=== PATIENT | female | born 1955 | race Native Hawaiian/Other Pacific Islander ===

== ENCOUNTER 2017-10-12 17:37 | Emergency (ER) | payer OTHER ==
[~2017-10-12] VITALS: Ht 172.7 cm; Wt 111.0 kg
[~2017-10-12 17:37] MED LIST: CLOP75 PO; INSLAN SQ; LOSA50TA37 PO; METF500T7 PO; METO-558 PO; NITR.4 SL
[2017-10-12 18:13] LABS: GLUCOSE,POINT OF CARE 138 MG/DL (70-110)
[2017-10-12] MEDS ORDERED: SODIUM CHLORIDE 0.9% 2,000 ML IV ONE (19:00)
[2017-10-12] MEDS ORDERED: ACETAMINOPHEN 500 MG TABLET PO ONE (19:00)
[2017-10-12] MEDS ORDERED: ONDANSETRON HCL 4 MG/2 ML VIAL IVP ONE (19:00)
[2017-10-12 19:05] LABS: BASOPHILS % (AUTO) 0.5 % (0.0-2.0); EOSINOPHILS % (AUTO) 1.4 % (1.0-6.0); HEMATOCRIT 32.5 % (36-46); HEMOGLOBIN 11.2 g/dL (12.0-16.0); LYMPHOCYTES # (AUTO) 2.2 K/uL (1.0-4.8); LYMPHOCYTES % (AUTO) 16.2 % (22.0-44.0); MEAN CORPUSCULAR HEMOGLOBIN 30.3 pg (26.0-34.0); MEAN CORPUSCULAR HGB CONC 34.3 G/dL (31.0-37.0); MEAN CORPUSCULAR VOLUME 88 fL (80-100); MONOCYTES # (AUTO) 0.9 K/uL (0.1-1.0); MONOCYTES % (AUTO) 6.9 % (2.0-9.0); NEUTROPHILS # (AUTO) 10.1 K/uL (1.8-7.7); PLATELET COUNT (AUTO) 256 K/uL (150-450); RED BLOOD CELL COUNT(AUTO) 3.68 MIL/uL (4.00-5.20); RED CELL DISTRIBUTION WIDTH 13.2 % (11.5-14.5)
[2017-10-12 19:14] LABS: CALCIUM, TOTAL 9.1 mg/dL (8.8-10.5); CREATININE 1.05 mg/dL (0.60-1.30); POTASSIUM 3.6 mmol/L (3.5-5.1)
[2017-10-12 19:19] LABS: ALBUMIN 3.1 g/dL (3.4-5.0); BILIRUBIN,TOTAL 0.6 mg/dL (0.1-1.0); TOTAL PROTEIN, SERUM 7.5 g/dL (6.4-8.2)
[2017-10-12 19:24] LABS: LACTIC ACID 0.9 mmol/L (0.4-2.0)
[2017-10-12 20:35] LABS: APPEARANCE,URINE CLEAR (CLEAR); BILIRUBIN,URINE NEGATIVE (NEGATIVE); GLUCOSE, URINE (UA) NEGATIVE (NEGATIVE); KETONES,URINE NEGATIVE (NEGATIVE); LEUKOCYTE ESTERASE ,URINE NEGATIVE (NEGATIVE); NITRATE,URINE NEGATIVE (NEGATIVE); OCCULT BLOOD,URINE NEGATIVE (NEGATIVE); PROTEIN,URINE NEGATIVE (NEGATIVE); UROBILINOGEN,URINE 0.2 mg/dL (<=1.0)
[2017-10-12 20:44] LABS: BACTERIA,URINE None Seen /HPF (None Seen); RBC,URINE None Seen /HPF (0-2); SQUAMOUS EPITHELIAL CELL,UR Rare /LPF (None Seen); WBC,URINE 0-2 /HPF (0-5)
[2017-10-12 22:10] VITALS: BP 127/68
== END 2017-10-12 22:00 | disposition home or self-care (01) ==
LOC: EMS 17:41
DX: J20.9 Acute bronchitis, unspecified (principal); R50.9 Fever, unspecified; E11.9 Type 2 diabetes mellitus without complications; R53.1 Weakness; E78.00 Pure hypercholesterolemia, unspecified; F17.210 Nicotine dependence, cigarettes, uncomplicated; I10 Essential (primary) hypertension; Z79.4 Long term (current) use of insulin; Z88.5 Allergy status to narcotic agent; Z88.6 Allergy status to analgesic agent; Z79.899 Other long term (current) drug therapy
CPT/HCPCS: 36415; 71045; 80053; 81001; 82962; 83605; 83690; 83880; 84484; 85025; 87040; 93005; 96361; 96374; 99285; 99406; J2405; J7030

== ENCOUNTER 2018-01-01 08:35 | Day surgery (SDC) | payer OTHER ==
[~2018-01-01] VITALS: Ht 167.6 cm; Wt 110.0 kg
[2018-01-01] MEDS ORDERED: SODIUM CHLORIDE 0.9% 100 ML ONE (08:54)
[2018-01-01] MEDS ORDERED: IOVERSOL 350 MG/ML 150 ML VIAL ONE (08:54)
[2018-01-01] MEDS ORDERED: METOPROLOL TARTRATE 50 MG TABLET PO PRN (09:00)
[2018-01-01] MEDS ORDERED: 0.9% SODIUM CHLORIDE 10 ML SYRINGE IVP PRN (09:00)
[2018-01-01 09:12] LABS: BASOPHILS % (AUTO) 0.5 % (0.0-2.0); EOSINOPHILS % (AUTO) 2.6 % (1.0-6.0); HEMATOCRIT 38.1 % (36-46); LYMPHOCYTES # (AUTO) 1.6 K/uL (1.0-4.8); LYMPHOCYTES % (AUTO) 25.3 % (22.0-44.0); MEAN CORPUSCULAR HEMOGLOBIN 30.1 pg (26.0-34.0); MEAN CORPUSCULAR HGB CONC 34.1 G/dL (31.0-37.0); MEAN CORPUSCULAR VOLUME 88 fL (80-100); MONOCYTES # (AUTO) 0.5 K/uL (0.1-1.0); MONOCYTES % (AUTO) 7.4 % (2.0-9.0); NEUTROPHILS # (AUTO) 4.1 K/uL (1.8-7.7); NEUTROPHILS % (AUTO) 64.2 % (40.0-70.0); PLATELET COUNT (AUTO) 298 K/uL (150-450); RED BLOOD CELL COUNT(AUTO) 4.31 MIL/uL (4.00-5.20); RED CELL DISTRIBUTION WIDTH 13.7 % (11.5-14.5)
[2018-01-01 09:21] LABS: CALCIUM, TOTAL 9.3 mg/dL (8.8-10.5); CREATININE 0.94 mg/dL (0.60-1.30); POTASSIUM 4.4 mmol/L (3.5-5.1)
[2018-01-01] MEDS ORDERED: CARV6 PO (09:24)
[2018-01-01] MEDS ORDERED: HYDR25TA PO (09:24)
[2018-01-01] MEDS ORDERED: ISOS30TA6 PO (09:24)
[2018-01-01] MEDS ORDERED: ATOR-2 PO (09:24)
[2018-01-01 09:25] LABS: PROTHROMBIN TIME 10.1 SEC (9.4-11.6)
[2018-01-01] MEDS ORDERED: METOPROLOL TARTRATE 50 MG TABLET ONE (09:44)
[2018-01-01] MEDS ORDERED: NITROGLYCERIN 400 MCG/SUBLINGUAL SPRAY 4.9 GM BOTTLE SL ONE (10:37)
[2018-01-01] MEDS ORDERED: METOPROLOL TARTRATE 5 MG/5 ML VIAL ONE (10:37)
[2018-01-01] MEDS ORDERED: METOPROLOL TARTRATE 5 MG/5 ML VIAL IVP ONE ×2 (10:47→10:58)
== END 2018-01-01 11:50 | disposition home or self-care (01) ==
LOC: SURGERY 08:35 → EDSTATUS 10:30 → SURGERY 11:50
PROVIDERS: ATTEND Internal Medicine Cardiovascular Disease
DX: I25.118 Atherosclerotic heart disease of native coronary artery with other forms of angina pectoris (principal); M47.814 Spondylosis without myelopathy or radiculopathy, thoracic region; I35.8 Other nonrheumatic aortic valve disorders; E11.40 Type 2 diabetes mellitus with diabetic neuropathy, unspecified; E78.00 Pure hypercholesterolemia, unspecified; Z98.41 Cataract extraction status, right eye; Z98.42 Cataract extraction status, left eye; Z79.01 Long term (current) use of anticoagulants; Z79.4 Long term (current) use of insulin; Z79.84 Long term (current) use of oral hypoglycemic drugs; Z86.79 Personal history of other diseases of the circulatory system; Z88.5 Allergy status to narcotic agent; Z88.6 Allergy status to analgesic agent; Z87.891 Personal history of nicotine dependence; Z98.890 Other specified postprocedural states; Z79.899 Other long term (current) drug therapy
CPT/HCPCS: 36415; 75574; 80048; 85025; 85610; 85730; 93005; J3490; J7050; Q9967

== ENCOUNTER 2019-04-22 07:42 | Emergency (ER) | payer MEDICARE, OTHER ==
[~2019-04-22] VITALS: Ht 170.2 cm; Wt 140.9 kg
[~2019-04-22 07:42] MED LIST changes: +ATOR-2 PO; +CARV6 PO; -CLOP75 PO; +CLOP75TA3 PO; +HYDR25TA PO; +ISOS30TA6 PO; -LOSA50TA37 PO; +LOSA50TA64 PO; -METF500T7 PO; -METO-558 PO; -NITR.4 SL; +NITR0.4T52 SL
[2019-04-22 08:00] LABS: GLUCOSE,POINT OF CARE 229 MG/DL (70-110)
[2019-04-22 08:47] VITALS: BP 189/93
== END 2019-04-22 08:50 | disposition home or self-care (01) ==
LOC: EMS 07:47
DX: L30.9 Dermatitis, unspecified (principal); E11.65 Type 2 diabetes mellitus with hyperglycemia; E78.00 Pure hypercholesterolemia, unspecified; I10 Essential (primary) hypertension; F17.210 Nicotine dependence, cigarettes, uncomplicated; Z88.6 Allergy status to analgesic agent; Z88.5 Allergy status to narcotic agent; Z79.4 Long term (current) use of insulin